=== PATIENT | male | born 1970 | race Two or more races ===

== ENCOUNTER 2016-11-21 17:02 | Emergency (ER) | payer MEDICARE, MEDICAID ==
[~2016-11-21] VITALS: Ht 172.7 cm; Wt 68.0 kg
--- NOTE | 2016-11-21 17:08 | Emergency Room Report ---
History of Present Illness General Chief Complaint: Behavioral Complaint Source: EMS Present Illness HPI The pt is a 46 yo M with a stated Hx of PTSD and schizophrenia presenting for possible SI. The pt states he is supposed to be taking Adderall, Klonopin but has not had his medications in several months and has not seen a psychiatrist within a year. The patient states that he has a plan for suicide which includes running into the street and getting hit by a car. The patient states he has tried this in the past but was unsuccessful.. The patient denies any alcohol or drug use. The patient denies other symptoms including nausea, vomiting, fever, chills, dizziness, chest pain, shortness of breath Allergies: Coded Allergies: No Known Allergies (Unverified , 11/21/16) Patient History Past Medical History: see triage record Pertinent Family History: none Reviewed Nursing Documentation: PMH: Agreed, PSxH: Agreed Nursing Documentation-PMH Past Medical History: No History, Except For History Of Psychiatric Problem: Yes Review of Systems All Other Systems: negative except mentioned in HPI Physical Exam Vital Signs Date Time Temp Pulse Resp B/P Pulse Ox O2 Delivery O2 Flow Rate FiO2 11/21/16 16:58 98.2 120 14 156/116 98 Room Air Sp02 EP Interpretation: reviewed, normal General Appearance: no apparent distress, alert, GCS 15, non-toxic Head: normocephalic, atraumatic Eyes: bilateral eye PERRL, bilateral eye normal inspection ENT: hearing grossly normal, normal pharynx, no angioedema, normal voice Neck: full range of motion, supple/symm/no masses Respiratory: chest non-tender, lungs clear, normal breath sounds, speaking full sentences Cardiovascular #1: regular rate, rhythm, no edema Gastrointestinal: normal bowel sounds, non tender, soft, non-distended, no guarding, no rebound Musculoskeletal: back normal, gait/station normal, normal range of motion, non- tender Neurologic: alert, oriented x3, responsive, motor strength/tone normal, sensory intact, normal gait, speech normal Psychiatric: judgement/insight normal, memory normal, mood/affect normal Suicide Risk Assessment: Suicidal Ideation: Yes Had intent to initiate attempt: Yes Pt's plan for suicide attempt: Yes Has means to complete attempt: Yes Skin: normal color, no rash, warm/dry, well hydrated Lymphatic: no adenopathy Medical Decision Making PA Attestation Dr. Owens is my supervising physician. Patient management was discussed with my supervising physician Diagnostic Impression: Primary Impression: Behavioral disorder ER Course The pt is a 46 yo M with a stated Hx of PTSD and schizophrenia presenting for possible SI. Differential diagnoses considered but not limited to suicidal ideation, homicidal ideation, depression PE: afebrile. Pt initially tachycardic and hypertensive but all vitals WNL at time of transfer. No apparent distress.Resting in gurney. PERRL. EOMI. Normal mentation. RRR. No MRG Lungs CTA bilat Abdomen: Normal appearance. Non distended. No ecchymosis. Normal BS. Non TTP. No McBurney point tenderness. No guarding. Skin is warm and dry, no rashes. Appears disheveled. CBC: no leukocytosis. Unremarkable. CMP unremarkable. UDS: all negative. Negative blood alcohol The patient is medically cleared at this time and PET is ordered. The pt will be transferred to [facility] for further care in stable condition. Labs Test 11/21/16 17:10 11/21/16 17:20 White Blood Count 10.0 K/UL (4.8-10.8) Red Blood Count 4.48 M/UL (4.70-6.10) Hemoglobin 13.7 G/DL (14.2-18.0) Hematocrit 41.1 % (42.0-52.0) Mean Corpuscular Volume 92 FL (80-99) Mean Corpuscular Hemoglobin 30.6 PG (27.0-31.0) Mean Corpuscular Hemoglobin Concent 33.3 G/DL (32.0-36.0) Red Cell Distribution Width 12.4 % (11.6-14.8) Platelet Count 285 K/UL (150-450) Mean Platelet Volume 7.0 FL (6.5-10.1) Neutrophils (%) (Auto) 75.4 % (45.0-75.0) Lymphocytes (%) (Auto) 16.3 % (20.0-45.0) Monocytes (%) (Auto) 5.7 % (1.0-10.0) Eosinophils (%) (Auto) 1.6 % (0.0-3.0) Basophils (%) (Auto) 1.0 % (0.0-2.0) Sodium Level 138 mEQ/L (135-145) Potassium Level 4.6 mEQ/L (3.4-4.9) Chloride Level 99 mEQ/L (98-107) Carbon Dioxide Level 25 mEQ/L (20-30) Anion Gap 14 (5-15) Blood Urea Nitrogen 12 mg/dL (7-23) Creatinine 0.9 mg/dL (0.7-1.2) Estimat Glomerular Filtration Rate > 60 mL/min (>60) Glucose Level 109 mg/dL (74-106) Calcium Level 9.4 mg/dL (8.6-10.2) Total Bilirubin 0.4 mg/dL (0.0-1.2) Aspartate Amino Transf (AST/SGOT) 16 U/L (5-40) Alanine Aminotransferase (ALT/SGPT) 20 U/L (3-41) Alkaline Phosphatase 112 U/L (40-129) Total Protein 7.3 g/dL (6.6-8.7) Albumin 4.5 g/dL (3.5-5.2) Globulin 2.8 g/dL Albumin/Globulin Ratio 1.6 (1.0-2.7) Salicylates Level < 1 mg/dL (10-30) Acetaminophen Level < 10 ug/mL (10-30) Serum Alcohol < 10 mg/dL Urine Opiates Screen Negative (NEGATIVE) Urine Barbiturates Screen Negative (NEGATIVE) Phencyclidine (PCP) Screen Negative (NEGATIVE) Urine Amphetamines Screen Negative (NEGATIVE) Urine Benzodiazepines Screen Negative (NEGATIVE) Urine Cocaine Screen Negative (NEGATIVE) Urine Marijuana (THC) Screen Negative (NEGATIVE) Lab Results Impression CBC: no leukocytosis. Unremarkable. CMP unremarkable. UDS: all negative. Negative blood alcohol Last Vital Signs Date Time Temp Pulse Resp B/P Pulse Ox O2 Delivery O2 Flow Rate FiO2 11/21/16 16:58 98.2 120 14 156/116 98 Room Air Status: improved Disposition: XFER TO PSYCH HOSP/UNIT Condition: Stable NETTIE PADILLA Nov 21, 2016 17:08
[2016-11-21 17:15] VITALS: BP 156/116
[2016-11-21 17:39] LABS: EOSINOPHILS % (AUTO) 1.6 % (0.0-3.0); LYMPHOCYTES % (AUTO) 16.3 % (20.0-45.0); MEAN CORPUSCULAR HEMOGLOBIN 30.6 PG (27.0-31.0); MEAN CORPUSCULAR HGB CONC 33.3 G/DL (32.0-36.0); MEAN CORPUSCULAR VOLUME 92 FL (80-99); MONOCYTES % (AUTO) 5.7 % (1.0-10.0); NEUTROPHILS % (AUTO) 75.4 % (45.0-75.0); PLATELET COUNT 285 K/UL (150-450); RED BLOOD COUNT 4.48 M/UL (4.70-6.10); RED CELL DISTRIBUTION WIDTH 12.4 % (11.6-14.8)
[2016-11-21 18:07] LABS: ACETAMINOPHEN < 10 ug/mL (10-30); ALANINE AMINOTRANSFERASE 20 U/L (3-41); ALBUMIN/GLOBULIN RATIO 1.6 (1.0-2.7); ALCOHOL < 10 mg/dL; ANION GAP 14 (5-15); ASPARTATE AMINO TRANSFERASE 16 U/L (5-40); CALCIUM 9.4 mg/dL (8.6-10.2); CARBON DIOXIDE 25 mEQ/L (20-30); CHLORIDE 99 mEQ/L (98-107); CREATININE 0.9 mg/dL (0.7-1.2); GLOMERULAR FILTRATION RATE > 60 mL/min (>60); HEMOLYSIS 12; POTASSIUM 4.6 mEQ/L (3.4-4.9); SODIUM 138 mEQ/L (135-145); TOTAL PROTEIN 7.3 g/dL (6.6-8.7)
[2016-11-21 23:00] VITALS: BP 150/99
[2016-11-22 01:35] VITALS: BP 142/98
[2016-11-22 03:35] VITALS: BP 140/96
[2016-11-22 05:10] VITALS: BP 124/96
--- NOTE | 2016-11-22 23:29 | Consultation ---
DATE OF CONSULTATION: 11/22/2016 HISTORY OF PRESENT ILLNESS: The patient is a 46-year-old male with a history of schizophrenia and PTSD, has been admitted to the emergency room with chief complaint of suicidal ideation. The patient stated that he was supposed to get Adderall and Klonopin. During the evaluation, the patient stated that he denied any suicidal ideation with intention. He is presenting with depressed mood, anhedonia, worthlessness, and hopelessness with no psychotic symptoms. PAST PSYCHIATRIC HISTORY: Significant for PTSD with schizophrenia. He has no psychiatric hospitalizations. PAST MEDICAL HISTORY: None known. FAMILY HISTORY: None. ALLERGIES: No known drug allergies. SUBSTANCE USE HISTORY: He has no history of illicit drug use or alcohol. MENTAL STATUS EXAMINATION: The patient is alert and oriented x3. Mood is depressed. Affect is constricted. Congruent mood. Thought process is concrete. Thought content, there is no suicidal or homicidal ideation. Insight and judgment is fair. ASSESSMENT: [place] I Schizophrenia. Posttraumatic stress disorder. [place] II Deferred. [place] III As above. [place] IV Moderate. [place] V Global assessment of functioning is 20 PLAN: 1. The patient is awaiting PET team evaluation. 2. Provide the patient with supportive therapy and reality orientation. Nichol Monaco M.D. DR: NANI JOB#: [id number] CC:
== END 2016-11-22 05:10 ==
LOC: EDBD 17:02 → EMR 17:25
DX: F91.9 Conduct disorder, unspecified (principal); R00.0 Tachycardia, unspecified; F20.9 Schizophrenia, unspecified; I10 Essential (primary) hypertension
CPT/HCPCS: 36415; 80053; 80300; 85025; 99285; G0480; 80329